=== PATIENT | female | born 1995 | race Caucasian/White ===

== ENCOUNTER 2017-08-19 06:15 | Observation (INO) | payer MEDICAID ==
[2017-08-19] MEDS ORDERED: NORPTMEDS CO (07:40)
== END 2017-08-19 09:45 | disposition home or self-care (01) | DRG 566 ==
LOC: LDRP 06:15
PROVIDERS: ADMIT Obstetrics & Gynecology; ATTEND Obstetrics & Gynecology
DX: O26.892 Other specified pregnancy related conditions, second trimester (principal); E86.0 Dehydration; R10.9 Unspecified abdominal pain; O99.282 Endocrine, nutritional and metabolic diseases complicating pregnancy, second trimester; Z3A.25 25 weeks gestation of pregnancy
CPT/HCPCS: 59025; 76805; 80307; 81002; G0378

== ENCOUNTER 2018-05-09 01:44 | Emergency (ER) | payer MEDICAID, OTHER ==
[~2018-05-09] VITALS: Ht 177.8 cm; Wt 81.6 kg
[~2018-05-09 01:44] MED LIST: NORPTMEDS CO
[2018-05-09 02:02] VITALS: BP 132/85
== END 2018-05-09 06:00 | disposition left against medical advice (07) ==
LOC: EDBD 01:44 → ER 01:47
DX: M54.9 Dorsalgia, unspecified (principal); Z53.21 Procedure and treatment not carried out due to patient leaving prior to being seen by health care provider